=== PATIENT | male | born 1990 | race Caucasian/White ===

== ENCOUNTER 2016-09-22 11:41 | Day surgery (SDC) | payer OTHER ==
[2016-09-15 10:18] LABS: ABSOLUTE EOSINOPHILS # (AUTO) 0.1 10^3/uL (0.0-0.6); ABSOLUTE LYMPHOCYTES (AUTO) 2.6 10^3/uL (0.5-4.7); ABSOLUTE MONOCYTES (AUTO) 0.5 10^3/uL (0.1-1.4); ABSOLUTE NEUT (AUTO) 2.9 10^3/uL (1.7-8.2); BASOPHILS % (AUTO) 0.3 % (0-2); EOSINOPHILS % (AUTO) 0.9 % (0-6); HEMATOCRIT 45.5 % (37.9-51.0); HEMOGLOBIN 15.8 g/dL (13.5-17.0); HGB HCT DIFFERENCE 1.9; MEAN CORPUSCULAR HEMOGLOBIN 30.1 pg (27.0-33.4); MEAN CORPUSCULAR HGB CONC 34.6 g/dL (32.0-36.0); MEAN CORPUSCULAR VOLUME 87 fl (80-97); MONOCYTES % (AUTO) 8.5 % (3-13); RED BLOOD COUNT 5.24 10^6/uL (4.35-5.55); RED CELL DISTRIBUTION WIDTH 12.5 % (11.5-14.0); SEGMENTED NEUTROPHILS % (AUTO) 47.3 % (42-78); WHITE BLOOD COUNT 6.1 10^3/uL (4.0-10.5)
[2016-09-15 10:21] LABS: APPEARANCE,URINE CLEAR; BILIRUBIN,URINE NEGATIVE (NEGATIVE); GLUCOSE, URINE NEGATIVE (NEGATIVE); KETONES,URINE NEGATIVE (NEGATIVE); LEUKOCYTE ESTERASE,URINE NEGATIVE (NEGATIVE); NITRITE,URINE NEGATIVE (NEGATIVE); PROTEIN,URINE NEGATIVE (NEGATIVE); UROBILINOGEN,URINE NEGATIVE mg/dL (<2.0)
[2016-09-15 10:58] LABS: ANION GAP 14 (5-19); BLOOD UREA NITROGEN 14 mg/dL (7-20); CALCIUM 9.8 mg/dL (8.4-10.2); CARBON DIOXIDE 22 mmol/L (22-30); CHLORIDE 104 mmol/L (98-107); CREATININE RESULT 0.87 mg/dL (0.52-1.25); GLUCOSE 143 mg/dL (75-110); POTASSIUM 4.7 mmol/L (3.6-5.0); SODIUM 140.2 mmol/L (137-145)
[~2016-09-22 11:41] MED LIST: CEFAZOLIN 2 GM/D5W RTU 2 GM/50 ML RTUPB IV PRN; LACTATED RINGERS 1000 ML IV PRN; LIDOCAINE 0.5% INJ-PF (5 MG/ML) 50 ML SDV SUBCUT PRN; NEOSTIGMINE METHYLSULFATE 10 MG/10 ML VIAL ONE; ONDANSETRON HCL INJ/PF 4 MG/2 ML SDV ONE
[2016-09-22] MEDS ORDERED: MIDAZOLAM 2 MG/2 ML INJ ONE (14:27)
[2016-09-22] MEDS ORDERED: PROPOFOL INJ 200 MG/20 ML VIAL IV ONE (14:27)
[2016-09-22] MEDS ORDERED: FENTANYL CITRATE INJ/PF 100 MCG/2 ML AMPUL ONE ×2 (14:27→15:47)
[2016-09-22] MEDS ORDERED: BUPIVACAINE HCL 0.25 % INJ/PF (2.5 MG/1 ML) 30 ML VIAL ONE (14:29)
[2016-09-22] MEDS ORDERED: MEPERIDINE HCL/PF INJ 25 MG/1 ML DISP.SYRIN IV PRN (15:03)
[2016-09-22] MEDS ORDERED: FENTANYL CITRATE INJ/PF 100 MCG/2 ML AMPUL IV PRN ×3 (15:03)
[2016-09-22] MEDS ORDERED: PROMETHAZINE HCL INJ 25 MG/1 ML VIAL IV PRN (15:03)
[2016-09-22] MEDS ORDERED: DIPHENHYDRAMINE HCL 50 MG/ML VIAL IV PRN (15:03)
[2016-09-22] MEDS ORDERED: ONDANSETRON HCL INJ/PF 4 MG/2 ML SDV IV PRN (15:03)
--- NOTE | 2016-09-22 15:50 | Operative Report ---
Operative Report DATE OF SURGERY: 09/22/16 PREOPERATIVE DIAGNOSIS: Ganglion cyst left foot POSTOPERATIVE DIAGNOSIS: Same OPERATION: Excision ganglion cyst left foot SURGEON: CHRISTINA DIAZ ANESTHESIA: GA TISSUE REMOVED OR ALTERED: Ganglion cyst COMPLICATIONS: none ESTIMATED BLOOD LOSS: 10mL INTRAOPERATIVE FINDINGS: as above PROCEDURE: Left foot was prepped and draped in a normal sterile surgical fashion. Patient received in the preop holding 2 g of Ancef before brought to the operating room. Patient in the supine position in the OR table was successfully induced and intubated. After prepping and draped in the left foot are normal sterile surgical fashion and a timeout was done identifying the left anterior foot as the correct site. The cyst in question was marked in the preoperative holding area and still was visible. Esmarch was inflated at 300 mmHg and 15 blade was used to do a longitudinal incision over the anterior lateral aspect of the ankle. After the skin incision Metzenbaum scissors was were used to expose subcutaneous tissue and a partial partial cut of the extensor retinaculum was done. This quickly exposed some of the extensor tendons. These were retracted laterally and was able to visualize the anterior capsule. Quickly right exposing the ganglion cyst that it burst and not getting a fluid was released. The stalk of the guidance this was then exposing and removed with a rondure. Also satisfied with the excision of the cyst I then used irrigation of the wound. I used 2-0 Vicryl to reapproximate the retinaculum and 2-0 Vicryl to reapproximate the dermal tissue. 3-0 nylon was used to reapproximate the skin. The extremity was cleaned and then Xeroform 4 x 4 dressing was applied over the incision and overwrapped with soft roll and Stanley bandage. Tourniquet was let down and the drapes were removed. Patient was successfully awoken extubated and sent to PACU in a stable condition.
--- NOTE | 2016-09-22 15:54 | PDOC DISCHARGE SUMMARY ---
Discharge Summary (SDC) - Discharge Final Diagnosis: Ganglion cyst left foot Date of Surgery: 09/22/16 Discharge Date: 09/22/16 Condition: Good Treatment or Instructions: Keep the dressing dry clean and intact for 4 days. In 4 days removing of the dressing and shower is allowed. Keep the incision exposed to air or with a Band-Aid. Weight-bear as tolerated. Ice and elevate when not ambulating. Follow-up in the office in 1-2 weeks. Prescriptions: Hydrocodone/Acetaminophen [[place] 5-325 mg Tablet] 1 tab PO Q6HP PRN #20 tablet PRN Reason: Discharge Diet: As Tolerated Respiratory Treatments at Home: Deep Breathing/Coughing Discharge Activity: Activity As Tolerated, Keep Legs Elevated, Slowly Increase Activity, Walk Frequently Home Care Assistance: None Needed Report the Following to Your Physician Immediately: Shortness of Breath, Vomiting, Increase in Pain, Fever over 101 Degrees, Unusual Bleeding, Redness, Swelling, Warmth, Drainage-Yellow, Drainage-Hicks, Drainage-Green, Drainage-Foul Smelling
[2016-09-22] MEDS ORDERED: OXYCODONE-ACETAMINOPHEN 5-325 MG TABLET PO PRN (15:57)
[2016-09-22 17:23] VITALS: BP 124/81
== END 2016-09-22 17:15 | disposition home or self-care (01) ==
LOC: OROUT 11:41
PROVIDERS: ATTEND Orthopaedic Surgery
PROC: 0LBW0ZZ Excision of Left Foot Tendon, Open Approach (ICD-10-PCS; principal; 2016-09-22 14:15)
DX: M67.472 Ganglion, left ankle and foot (principal); Z79.899 Other long term (current) drug therapy; Z87.891 Personal history of nicotine dependence
CPT/HCPCS: 36415; 85025; 80048; 81001; 88305 ×2; 28090; J2250; J3010; J2405; J2704; J0690; 1470

== ENCOUNTER → 2019-12-05 | Outpatient (CLI) | payer OTHER ==
[2019-12-05 13:32] VITALS: BP 141/67
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
[2019-12-05 14:25] LABS: A TYPE INFLUENZA AG NEGATIVE (NEGATIVE); B INFLUENZA AG NEGATIVE (NEGATIVE)
== END ==
LOC: RDC 12:48
PROVIDERS: ATTEND Registered Nurse
DX: J06.9 Acute upper respiratory infection, unspecified (principal); Z20.828 Contact with and (suspected) exposure to other viral communicable diseases; R68.83 Chills (without fever); R05 Cough; J02.9 Acute pharyngitis, unspecified; R09.89 Other specified symptoms and signs involving the circulatory and respiratory systems; M79.10 Myalgia, unspecified site; R51 Headache; Z87.891 Personal history of nicotine dependence; M13.811 Other specified arthritis, right shoulder
CPT/HCPCS: 87070; 87880; 87635; 87804; C9803

== ENCOUNTER 2020-03-20 01:00 | Emergency (ER) | payer OTHER ==
[2020-03-20] MEDS ORDERED: HYDROMORPHONE HCL INJ/PF 2 MG/ML AMPULE IV ONE (05:36)
[2020-03-20] MEDS ORDERED: DIAZEPAM INJ 10 MG/2 ML DISP.SYRIN IV ONE (05:37)
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
[2020-03-20] MEDS ORDERED: HYDROCODONE/ACETAMINOPHEN 5-325 MG (6 TAB/ER DISP) PO PRN (06:59)
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
[2020-03-20 07:58] VITALS: BP 116/74
== END 2020-03-20 07:58 | disposition home or self-care (01) ==
LOC: ER 01:00
DX: S29.012A Strain of muscle and tendon of back wall of thorax, initial encounter (principal); M54.2 Cervicalgia; V48.5XXA Car driver injured in noncollision transport accident in traffic accident, initial encounter; Y93.89 Activity, other specified; M62.830 Muscle spasm of back; Z87.891 Personal history of nicotine dependence
CPT/HCPCS: 99285; 96374; 96375; 70450; 71260; 72125; 74177; J3360; J1170